=== PATIENT | female | born 1995 | race Caucasian/White ===

== ENCOUNTER → 2021-05-22 08:33 | Outpatient (CLI) | payer BC, SELFPAY ==
--- NOTE | ~2021-05-22 | US_ITS ---
US breast RT complete DATE: 05/22/2021 08:52 INDICATION: Right breast lateral pain, lump TECHNIQUE: Real-time imaging of complete right breast including all 4 quadrants and subareolar area COMPARISON: None FINDINGS: At 10:00 6 cm from the nipple at the area of palpable lump there is a 1.0 x 0.5 x 0.9 mm so nolucency with through transmission consistent with simple cyst. No suspicious mass or shadowing is detected. No other significant sonographic finding. IMPRESSION: BI-RADS Category 2: Benign; benign 1 cm cyst at area of clinical complaint at 10:00 6 cm from nipple Reviewed, dictated and finalized at [facility]. Reviewed, dictated and finalized at [facility]. IMPRESSION: BI-RADS Category 2: Benign; benign 1 cm cyst at area of clinical co mplaint at 10:00 6 cm from nipple
== END ==
PROVIDERS: Visit Provider Nurse Practitioner Obstetrics & Gynecology
DX: N64.4 Mastodynia (principal)
CPT/HCPCS: 76641